=== PATIENT | male | born 1950 ===

== ENCOUNTER 2017-01-14 07:26 | Day surgery (SDC) | payer MEDICARE ==
[2017-01-14] MEDS ORDERED: Lactated Ringer's 500 ML IV ONE (07:41)
[2017-01-14 07:50] VITALS: BMI 24.7
[2017-01-14] MEDS ORDERED: Propofol 10 mg/ml Inj (20 ML) ONE (08:40)
[2017-01-14] MEDS ORDERED: Lidocaine 2% MPF (5 ml) Inj ONE (08:56)
[2017-01-14 09:07] VITALS: TEMP 97
[2017-01-14 09:19] VITALS: BP 105/68; PULSE 50; RESP 18; O2SAT 100
== END 2017-01-14 09:31 | disposition home or self-care (01) ==
LOC: H.ENDO 07:26
PROVIDERS: ATTEND Internal Medicine Gastroenterology
DX: Z12.11 Encounter for screening for malignant neoplasm of colon (principal); I25.10 Atherosclerotic heart disease of native coronary artery without angina pectoris; I10 Essential (primary) hypertension; K64.8 Other hemorrhoids; K57.30 Diverticulosis of large intestine without perforation or abscess without bleeding
CPT/HCPCS: 45378; J2704; J7120